=== PATIENT | female | born 1985 | race African-American/Black ===

== ENCOUNTER 2017-05-31 07:11 | Emergency (ER) | payer OTHER, MEDICAID ==
[~2017-05-31] VITALS: Ht 162.6 cm; Wt 76.0 kg
[2017-05-31 07:19] VITALS: BP 190/116; PULSE 80; RESP 20; TEMP 98; O2SAT 98
[2017-05-31] MEDS ORDERED: CYCL1TAB29 PO (07:29)
[2017-05-31] MEDS ORDERED: NORC5TAB PO ×3 (07:29→08:40)
[2017-05-31] MEDS ORDERED: LORazepam 2 MG/ML VIAL IM ONE (07:30)
[2017-05-31] MEDS ORDERED: KETOROLAC TROMETHAMINE 60 MG/2 ML (IM) VIAL IM ONE (07:30)
[2017-05-31] MEDS ORDERED: IBUP800T23 PO ×2 (07:48→08:40)
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
[2017-05-31 08:05] VITALS: BP 160/90; PULSE 82; RESP 20; O2SAT 98
[2017-05-31 08:53] VITALS: RESP 16
== END 2017-05-31 08:53 | disposition home or self-care (01) ==
LOC: PHED 07:11
DX: T20.10XA Burn of first degree of head, face, and neck, unspecified site, initial encounter (principal); T31.0 Burns involving less than 10% of body surface; X02.0XXA Exposure to flames in controlled fire in building or structure, initial encounter; Y93.G3 Activity, cooking and baking; Y92.233 Cafeteria of hospital as the place of occurrence of the external cause; Y99.0 Civilian activity done for income or pay
CPT/HCPCS: 16000; 96372; 99284; J1885; J2060